=== PATIENT | male | born 1950 | race Caucasian/White ===

== ENCOUNTER 2016-12-10 13:26 | Emergency (ER) | payer OTHER ==
[~2016-12-10] VITALS: Ht 182.9 cm; Wt 95.3 kg
[~2016-12-10 13:26] MED LIST: CALCIUM + D3 E1 EACH PO; CITRATE OF1.75 GM/31 PO; LISINOPRIL40 M1 PO; MULTIPLE VITAM1 EAC2 PO; NEXIUM40 M1 PO; VITAMIN B-121000 MC3 PO; VITAMIN C500 M6 PO
[2016-12-10 13:32] VITALS: BP 162/84
--- NOTE | 2016-12-10 14:12 | ED HAND/WRIST INJURY COMPLAINT ---
History of Present Illness General Chief Complaint: Upper Extremity Problem Stated Complaint: SWOLLEN MIDDLE FINGER (RT HAND) Source: patient Exam Limitations: no limitations Vital Signs & Intake/Output Vital Signs & Intake/Output Vital Signs Date Time Temp Pulse Resp B/P Pulse O2 O2 Flow FiO2 Ox Delivery Rate 12/10 1332 98.3 97 20 162/84 99 Room Air Allergies Coded Allergies: NO KNOWN ALLERGIES (03/05/12) Reconcile Medications Amoxicillin 875 MG TABLET 1 TAB PO BID PARONYCHIA Ascorbate Calcium (Vitamin C) 500 MG TABLET 1 TAB PO DAILY SUPPLEMENT ( Reported) Calcium Carb & Citrate/Vit D3 (Calcium + D3 ER Tablet) 600 MG CALCIUM-500 UNIT TABLET.ER 1 TAB PO DAILY SUPPLEMENT (Reported) Cyanocobalamin (Vitamin B-12) 1,000 MCG TABLET 1 TAB PO DAILY SUPPLEMENT ( Reported) Esomeprazole (Nexium) 40 MG CAPSULE.DR 1 CAP PO DAILY ACID REFLUX (Reported) Indomethacin 50 MG CAPSULE 1 CAP PO TID PAIN with food Lisinopril 40 MG TABLET 1 TAB PO DAILY BP (Reported) Multivitamin (Multiple Vitamins) 1 EACH TABLET 1 TAB PO DAILY SUPPLEMENT ( Reported) Sulfamethoxazole/Trimethoprim (Bactrim Ds Tablet) 800 MG-160 MG TABLET 1 TAB PO BID PARONYCHIA Triage Note: STATES HE HAD SURGERY ON HIS RIGHT MIDDLE FINGER MONDAY AND ITS BEEN KILLING HIM. VERY PAINFUL AND SWOLLEN. F/U APPT ON MONDAY Triage Nurses Notes Reviewed? yes Occurred: just prior to arrival Duration: week(s): (over 1 week), getting worse Timing: recent history Injury Environment: home Severity: moderate, severe Pain/Injury Location: Right: 3rd finger. No Modifying Factors: none HPI: 66-year-old male comes into the emergency room for further evaluation of pain and swelling to his right middle finger. Patient reports that he had a drain by his primary doctor a few days back. Patient has been on Keflex and is on his last day. Patient reports that the swelling is gone progressively worse. Limited range of motion. Denies any fever chills vomiting. Denies a history of diabetes. Nothing seems to make the symptoms better or worse. Past History Travel History Traveled to [place] past 21 day No Medical History Any Pertinent Medical History? see below for history Cardiovascular: hypertension Gastrointestinal: GERD Surgical History Surgical History: non-contributory Psychosocial History Who do you live with Spouse What is your primary language Croatian Tobacco Use: Quit >30 days ago ETOH Use: occasional use Illicit Drug Use: denies illicit drug use Family History Hx Contributory? No Review of Systems Review of Systems Constitutional: Reports: no symptoms. EENTM: Reports: no symptoms. Respiratory: Reports: no symptoms. Cardiovascular: Reports: no symptoms. GI: Reports: no symptoms. Genitourinary: Reports: no symptoms. Musculoskeletal: Reports: see HPI. Skin: Reports: see HPI. Neurological/Psychological: Reports: no symptoms. Hematologic/Endocrine: Reports: no symptoms. Immunologic/Allergic: Reports: no symptoms. All Other Systems: Reviewed and Negative Physical Exam Physical Exam General Appearance: well developed/nourished, mild distress Head: atraumatic Eyes: Bilateral: normal appearance. Ears, Nose, Throat: normal ENT inspection, hearing grossly normal Neck: normal inspection Cardiovascular/Respiratory: no respiratory distress Back: normal inspection Hand Left: normal inspection Hand Right: 3rd finger, swelling, erythema, warmth, cap refill intact, limited range of motion, Neurologic/Tendon: normal sensation, normal motor functions, responds to pain, no pulse deficit Skin: intact, normal color, warm/dry Lymphatic: no anterior cervical chance Progress Differential Diagnosis: abscess, cellulitis, felon, paronychia, septic arthritis , sprain, tenosynovitis Plan of Care: Orders Procedure Date/time Status EXTREMETIES CULTURE 12/10 1425 Active Microbiology 12/10 1426 EXTREMITIE: Culture & Sensitivity - RECD 12/10 1426 EXTREMITIE: Gram Stain - RECD Departure Departure Disposition: HOME OR SELF CARE Condition: Stable Clinical Impression Primary Impression: Paronychia of finger of right hand Referrals: JOANNA KANG,VIN Stoddard (PCP) NILES SEGURA MD Additional Instructions: Take Bactrim and amoxicillin as prescribed. Take indomethacin as prescribed. Follow-up with plastic surgeon provided. Return if any concerns worsening symptoms. Continue warm soaks multiple times today with right finger. Please go over all results of today's visit with your primary care doctor. Contact your primary care doctor to let them know you were here in the emergency room. There may be nonspecific findings which may not be related to your visit today here in the emergency room but may require further evaluation and chronic monitoring by your primary care doctor. If you had a laceration today the chance of foreign body always remains. You should follow-up with your primary care doctor for recheck in 3-5 days for a wound check. If you had an x-ray done there is a chance that a fracture could have been missed on initial read and you should follow-up with your primary care doctor for repeat x-rays if symptoms persist. If your blood pressure was elevated here in the emergency room please have rechecked by her primary care doctor within the next 48 hours by your primary care doctor. If you were prescribed a narcotic here in the emergency room or any type of controlled substances you're not allowed to drive while taking this medication or operate any type of heavy machinery. Narcotics can make you feel lightheaded dizziness nausea and can cause constipation. You may need to strip picker a stool softener. Thank you for choosing [facility] emergency room. Please return to the emergency room immediately if you have any other concerns worsening of symptoms. Departure Forms: Customer Survey General Discharge Information Prescriptions: Current Visit Scripts Amoxicillin 1 TAB PO BID #14 TAB Sulfamethoxazole/Trimethoprim (Bactrim Ds Tablet) 1 TAB PO BID #14 TAB Indomethacin 1 CAP PO TID #15 CAP with food Procedures Incision and Drainage Site: right middle finger lateral nail bed Blade Size: 11 I & D Procedure: Yes: betadine prep, sterile drapes applied, sterile dressing applied. Progress: Cary clamp used to break up adhesions, thick discharge removed, culture sent,
[2016-12-10] MEDS ORDERED: BACTRIM DS TAB1 EACH PO (14:14)
[2016-12-10] MEDS ORDERED: INDOMETHACIN50 M1 PO (14:14)
[2016-12-10] MEDS ORDERED: AMOXICILLIN875 M1 PO (14:14)
== END 2016-12-10 14:41 ==
LOC: ERH 13:26
DX: L03.011 Cellulitis of right finger (principal)
CPT/HCPCS: 87070; J2001